=== PATIENT | female | born 1975 | race Two or more races ===

== ENCOUNTER 2021-03-11 14:38 | Emergency (ER) | payer SELFPAY ==
[~2021-03-11] VITALS: Ht 162.6 cm; Wt 70.3 kg
[2021-03-11 16:52] VITALS: BP 105/59
[2021-03-11] MEDS ORDERED: AZIT500T66 PO (17:58)
[2021-03-11] MEDS ORDERED: ACET-1080 PO (17:58)
== END 2021-03-11 18:20 | disposition home or self-care (01) ==
LOC: ER 14:38
DX: U07.1 COVID-19 (principal); H66.91 Otitis media, unspecified, right ear
CPT/HCPCS: 36415; 87426

== ENCOUNTER 2021-09-26 15:56 | Emergency (ER) | payer OTHER ==
[~2021-09-26] VITALS: Ht 162.6 cm; Wt 72.7 kg
[~2021-09-26 15:56] MED LIST: ACET-1080 PO; AZIT500T66 PO
[2021-09-26 21:05] VITALS: BP 114/72
== END 2021-09-26 21:10 | disposition home or self-care (01) ==
LOC: ER 15:56
DX: U07.1 COVID-19 (principal)
CPT/HCPCS: 36415; 71046